=== PATIENT | male | born 1940 | race Caucasian/White ===

== ENCOUNTER 2020-09-26 11:53 | Emergency (ER) | payer OTHER ==
[~2020-09-26] VITALS: Ht 177.8 cm; Wt 92.5 kg
== END 2020-09-26 16:07 | disposition home or self-care (01) ==
LOC: ER 11:53
DX: R42 Dizziness and giddiness (principal); H92.02 Otalgia, left ear

== ENCOUNTER 2020-10-06 14:19 | Outpatient (CLI) | payer OTHER | END 2020-10-06 15:31 | disposition home or self-care (01) | LOC: OFIC 805 14:19 | PROVIDERS: ATTEND Otolaryngology Otology & Neurotology | DX: R42 Dizziness and giddiness (principal); H61.23 Impacted cerumen, bilateral ==

== ENCOUNTER 2020-10-20 13:44 | Outpatient (CLI) | payer OTHER | END 2020-10-20 14:44 | disposition home or self-care (01) | LOC: OFIC 805 13:44 | PROVIDERS: ATTEND Otolaryngology Otology & Neurotology | DX: R42 Dizziness and giddiness (principal); H61.23 Impacted cerumen, bilateral ==

== ENCOUNTER 2021-10-15 18:57 | Inpatient (IN) | payer OTHER ==
[~2021-10-15] VITALS: Ht 172.7 cm; Wt 93.9 kg
[2021-10-19] MEDS ORDERED: FINASTERIDE5 MG (11:23)
[2021-10-19] MEDS ORDERED: METOPROLOL SUCC50 MG (11:23)
[2021-10-19] MEDS ORDERED: CILOSTAZOL50 MG (11:23)
[2021-10-19] MEDS ORDERED: METFORMIN HCL850 M1 (11:23)
[2021-10-19] MEDS ORDERED: HYDROCHLOROTHIA25 MG (11:23)
[2021-10-19] MEDS ORDERED: GLIPIZIDE ER2.5 MG (11:23)
[2021-10-19] MEDS ORDERED: LOSARTAN POTAS100 MG (11:23)
[2021-10-19] MEDS ORDERED: FOLIC ACID1 MG (11:23)
[2021-10-19] MEDS ORDERED: PREDNISOLONE ACE5 ML (11:24)
[2021-10-19] MEDS ORDERED: TAMSULOSIN HCL0.4 MG (11:24)
[2021-10-19] MEDS ORDERED: SIMVASTATIN40 MG (11:24)
[2021-10-19] MEDS ORDERED: NOVOLOG MI100 UNIT/1 (11:24)
[2021-10-19] MEDS ORDERED: RASAGILINE MESYL1 MG (11:24)
== END 2021-10-27 20:22 | disposition home health service (06) | DRG 637 ==
LOC: ER 18:57 → MEDI 10-16 01:24 → SEC-K 10-16 01:24 → MEDJ 10-16 01:24 → SEC-K 10-16 09:46 → MEDJ 10-16 17:08
PROVIDERS: ADMIT Internal Medicine; ATTEND Internal Medicine
PROC: C710YZZ Planar Nuclear Medicine Imaging of Bone Marrow using Other Radionuclide (ICD-10-PCS; principal; 2021-10-17)
PROC: BQ3DZZZ Magnetic Resonance Imaging (MRI) of Right Lower Leg (ICD-10-PCS; 2021-10-21)
DX: E11.621 Type 2 diabetes mellitus with foot ulcer (principal); U07.1 COVID-19; L97.518 Non-pressure chronic ulcer of other part of right foot with other specified severity; M86.071 Acute hematogenous osteomyelitis, right ankle and foot; E87.1 Hypo-osmolality and hyponatremia; E11.51 Type 2 diabetes mellitus with diabetic peripheral angiopathy without gangrene; N17.8 Other acute kidney failure; E11.65 Type 2 diabetes mellitus with hyperglycemia; Z79.4 Long term (current) use of insulin; I12.9 Hypertensive chronic kidney disease with stage 1 through stage 4 chronic kidney disease, or unspecified chronic kidney disease; E11.22 Type 2 diabetes mellitus with diabetic chronic kidney disease; N18.9 Chronic kidney disease, unspecified; B95.61 Methicillin susceptible Staphylococcus aureus infection as the cause of diseases classified elsewhere; B95.2 Enterococcus as the cause of diseases classified elsewhere; B96.89 Other specified bacterial agents as the cause of diseases classified elsewhere; H91.22 Sudden idiopathic hearing loss, left ear
CPT/HCPCS: 73221

== ENCOUNTER 2022-02-17 08:34 | Inpatient (IN) | payer OTHER ==
[~2022-02-17] VITALS: Ht 167.6 cm; Wt 72.6 kg
[~2022-02-17 08:34] MED LIST: CILOSTAZOL50 MG; FINASTERIDE5 MG; FOLIC ACID1 MG; GLIPIZIDE ER2.5 MG; HYDROCHLOROTHIA25 MG; LOSARTAN POTAS100 MG; METFORMIN HCL850 M1; METOPROLOL SUCC50 MG; NOVOLOG MI100 UNIT/1; PREDNISOLONE ACE5 ML; RASAGILINE MESYL1 MG; SIMVASTATIN40 MG; TAMSULOSIN HCL0.4 MG
--- NOTE | 2022-02-17 09:12 | NUR ---
PACIENTE SE LE REALIZAN MUESTRAS DE JEREMÍAS POR ORDEN MEDICA, FOOT CULTURE.
--- NOTE | 2022-02-17 09:32 | NUR ---
SE RECIBE MASCULINO DE 81 ANOS EN AMBULANCIA ALERTA Y ORIENTADO X3. REFIERE LESION EN PIE DERECHO. AL MOMENTO NO PRESENTA DOLOR. SE REALIZA BRENDA DE S/V Y DXT 132 MG/DL Y SE UBICA EN SUSU #10 PENDIENTE A EVALUACION MEDICA.
--- NOTE | 2022-02-17 09:33 | NUR ---
DR. NEWMAN EVALUA PTE Y ORDENA TX EL CUAL SE EJECITA EN OROZCO TOTALIDAD BAJO TECNICA ASEPTICA. SE ORIENTA APTE SOBRE EL MISMO Y REFIERE COMPRENDER. SE REALIZA CULTIVO EN LESION DE PIE DERECHO. SE OBSERVA LESION SECA Y AMARILLENTA. AL MOMENTO NO SUPURA. PIEL CIRCUNDANTE NORMAL Y NO CALIENTE AL TACTO. PTE TOLERA PROCEDIMIENTO. SE MENTIENE PTE BAJO OBSERVACION. PENDIENTE RESULTADOS DE LABORATORIO.
[2022-02-27] MEDS ORDERED: INTEGRA PLUS C1 EACH PO (13:56)
[2022-02-27] MEDS ORDERED: LOSARTAN POTAS100 MG PO (13:56)
[2022-02-27] MEDS ORDERED: GLIPIZIDE ER2.5 MG PO (13:56)
[2022-02-27] MEDS ORDERED: INTESTINEX680 M1 PO (13:56)
[2022-02-27] MEDS ORDERED: LORATADINE10 MG PO (13:56)
[2022-02-27] MEDS ORDERED: METOPROLOL SUCC50 MG PO (13:56)
[2022-02-27] MEDS ORDERED: CILOSTAZOL50 MG PO (13:56)
[2022-02-27] MEDS ORDERED: FOLIC ACID1 MG PO (13:56)
[2022-02-27] MEDS ORDERED: METFORMIN HCL850 M1 PO (13:56)
[2022-02-27] MEDS ORDERED: FAMOTIDINE20 MG PO (13:56)
== END 2022-02-27 15:32 | disposition home or self-care (01) | DRG 638 ==
LOC: ER 08:34 → SURH 21:02 → MEDI 21:02 → SURH 02-18 08:28
PROVIDERS: ADMIT Internal Medicine; ATTEND Internal Medicine
PROC: 8E0ZXY6 Isolation (ICD-10-PCS; principal; 2022-02-18)
PROC: BQ3LZZZ Magnetic Resonance Imaging (MRI) of Right Foot (ICD-10-PCS; 2022-02-18)
PROC: 02HV33Z Insertion of Infusion Device into Superior Vena Cava, Percutaneous Approach (ICD-10-PCS; 2022-02-18)
DX: E11.69 Type 2 diabetes mellitus with other specified complication (principal); M86.171 Other acute osteomyelitis, right ankle and foot; L97.418 Non-pressure chronic ulcer of right heel and midfoot with other specified severity; E11.621 Type 2 diabetes mellitus with foot ulcer; E11.51 Type 2 diabetes mellitus with diabetic peripheral angiopathy without gangrene; L03.031 Cellulitis of right toe; E11.65 Type 2 diabetes mellitus with hyperglycemia; B95.61 Methicillin susceptible Staphylococcus aureus infection as the cause of diseases classified elsewhere; B96.5 Pseudomonas (aeruginosa) (mallei) (pseudomallei) as the cause of diseases classified elsewhere; B96.89 Other specified bacterial agents as the cause of diseases classified elsewhere; Z79.4 Long term (current) use of insulin; Z79.84 Long term (current) use of oral hypoglycemic drugs
CPT/HCPCS: 73221

== ENCOUNTER 2022-05-06 16:49 | Inpatient (IN) | payer OTHER ==
[~2022-05-06] VITALS: Ht 172.7 cm; Wt 89.4 kg
[~2022-05-06 16:49] MED LIST changes: +CILOSTAZOL50 MG PO; +FAMOTIDINE20 MG PO; +FOLIC ACID1 MG PO; +GLIPIZIDE ER2.5 MG PO; +INTEGRA PLUS C1 EACH PO; +INTESTINEX680 M1 PO; +LORATADINE10 MG PO; +LOSARTAN POTAS100 MG PO; +METFORMIN HCL850 M1 PO; +METOPROLOL SUCC50 MG PO
== END 2022-05-13 18:56 | DRG 638 ==
LOC: ER 16:49 → MEDI 20:12
PROVIDERS: ADMIT Internal Medicine; ATTEND Internal Medicine
PROC: B54BZZZ Ultrasonography of Right Lower Extremity Veins (ICD-10-PCS; principal; 2022-05-06)
PROC: B44FZZZ Ultrasonography of Right Lower Extremity Arteries (ICD-10-PCS; 2022-05-06)
PROC: BQ3DZZZ Magnetic Resonance Imaging (MRI) of Right Lower Leg (ICD-10-PCS; 2022-05-09)
PROC: 02HV33Z Insertion of Infusion Device into Superior Vena Cava, Percutaneous Approach (ICD-10-PCS; 2022-05-12)
DX: E11.621 Type 2 diabetes mellitus with foot ulcer (principal); L02.611 Cutaneous abscess of right foot; L97.419 Non-pressure chronic ulcer of right heel and midfoot with unspecified severity; L03.115 Cellulitis of right lower limb; M86.171 Other acute osteomyelitis, right ankle and foot; B95.62 Methicillin resistant Staphylococcus aureus infection as the cause of diseases classified elsewhere; E11.628 Type 2 diabetes mellitus with other skin complications; E11.65 Type 2 diabetes mellitus with hyperglycemia; E11.51 Type 2 diabetes mellitus with diabetic peripheral angiopathy without gangrene; E11.22 Type 2 diabetes mellitus with diabetic chronic kidney disease; I12.9 Hypertensive chronic kidney disease with stage 1 through stage 4 chronic kidney disease, or unspecified chronic kidney disease; N18.2 Chronic kidney disease, stage 2 (mild); D64.9 Anemia, unspecified; R60.0 Localized edema; Z79.84 Long term (current) use of oral hypoglycemic drugs; Z20.822 Contact with and (suspected) exposure to COVID-19; Z79.4 Long term (current) use of insulin; Z53.29 Procedure and treatment not carried out because of patient's decision for other reasons
CPT/HCPCS: 73221